=== PATIENT | male | born 1950 | race Caucasian/White ===

== ENCOUNTER 2016-10-03 10:11 | Emergency (ER) | payer MEDICARE, BC ==
[2016-10-03 10:39] VITALS: BP 140/84
--- NOTE | 2016-10-03 11:14 | UC ---
Ear Complaint HPI - HPI Summary HPI Summary: left ear clogged with wax--needs it flushed - History of Current Complaint Chief Complaint: UCEar Stated Complaint: EAR COMPLAINT Time Seen by Provider: 10/03/16 10:42 Hx Obtained From: Patient Onset/Duration: Gradual Onset, Lasting Weeks, Still Present Severity Initially: Mild Severity Currently: Moderate Pain Intensity: 5 Pain Scale Used: 0-10 Numeric Aggravating Factors: Nothing Alleviating Factors: Nothing Associated Signs/Symptoms: Positive: Hearing Loss - Allergies/Home Medications Allergies/Adverse Reactions: Allergies Allergy/AdvReac Type Severity Reaction Status Date / Time Penicillins [PCN] Allergy Rash Verified 10/03/16 10:39 Home Medications: Home Medications Aspirin 81 mg PO 10/03/16 [History] Chlorthalidone 6.25 mg PO 10/03/16 [History] Lisinopril [Lisinopril 2.5 MG-] 2.5 mg PO DAILY 10/03/16 [History Confirmed ] Nepafenac [Nevanac] 0.1 % OP 10/03/16 [History] PMH/Surg Hx/FS Hx/Imm Hx Previously Healthy: No Cardiovascular History: Hypertension - Surgical History Surgical History: None - Family History Known Family History: Positive: None - Social History Occupation: Employed Full-time Lives: With Family Alcohol Use: Weekly Substance Use Type: None Smoking Status (MU): Never Smoked Tobacco Review of Systems Constitutional: Negative Skin: Negative Eyes: Negative ENT: Negative, Ear Ache - left ear with hearing loss, feels like ear is clogged Respiratory: Negative Cardiovascular: Negative Gastrointestinal: Negative Genitourinary: Negative Motor: Negative Neurovascular: Negative Musculoskeletal: Negative Neurological: Negative Psychological: Negative All Other Systems Reviewed And Are Negative: Yes Physical Exam Triage Information Reviewed: Yes Appearance: Well-Appearing, No Pain Distress, Well-Nourished Vital Signs: Initial Vital Signs Temp 98.1 F 10/03/16 10:36 Pulse 69 10/03/16 10:36 Resp 18 10/03/16 10:36 BP 140/84 10/03/16 10:36 Pulse Ox 97 10/03/16 10:36 Vital Signs Reviewed: Yes Eye Exam: Normal Eyes: Positive: Conjunctiva Clear ENT Exam: Normal ENT: Positive: Normal ENT inspection, Hearing grossly normal, Pharynx normal, TMs normal. Negative: Nasal congestion, Nasal drainage, Trismus, Muffled/ hoarse voice Neck exam: Normal Neck: Positive: Supple, Nontender, No Lymphadenopathy Respiratory Exam: Normal Respiratory: Positive: Chest non-tender, No respiratory distress, No accessory muscle use Cardiovascular Exam: Normal Cardiovascular: Positive: RRR, Pulses Normal, Brisk Capillary Refill Abdomen Description: Positive: No Organomegaly, Soft Bowel Sounds: Positive: Absent Musculoskeletal Exam: Normal Musculoskeletal: Positive: Strength Intact, ROM Intact, No Edema Neurological Exam: Normal Neurological: Positive: Alert, Muscle Tone Normal Psychological Exam: Normal Skin Exam: Normal Re-Evaluation - Re-Evaluation First Eval Change: Improved - large amont of wax removed from left ear patient tolerated well-home in good condition in no c/o Ear Complaint Course/Dx - Course Course Of Treatment: avoid soaps and qtips in ear return or following with pcp if needed - Differential Dx/Diagnosis Differential Diagnosis/HQI/PQRI: Cerumen Impaction, Foreign Body, Trauma, Trigeminal Nueralgia, URI Provider Diagnoses: Resolved serumen impaction leaft ear Discharge - Discharge Plan Condition: Stable Disposition: HOME Patient Education Materials: Cerumen Impaction (ED), Hypertension (ED) Referrals: Carmen Murdock MD [Primary Care Provider] - If Needed
== END 2016-10-03 11:36 | disposition home or self-care (01) ==
LOC: UCEAST 10:11
DX: H61.22 Impacted cerumen, left ear (principal); Z88.0 Allergy status to penicillin; Z79.82 Long term (current) use of aspirin; I10 Essential (primary) hypertension
CPT/HCPCS: 99212; G0463

== ENCOUNTER 2016-11-28 17:28 | Emergency (ER) | payer MEDICARE, BC ==
[2016-11-28 17:34] VITALS: BP 157/83
[2016-11-28] MEDS ORDERED: DOXYcycline CAP(*) 100 MG PO ONE (18:01)
--- NOTE | 2016-11-28 18:15 | UC ---
Cande Jimenez Emily, scribed for Lacie Campbell MD on 11/28/16 at 1803 . Skin Complaint HPI - HPI Summary HPI Summary: This patient is a 66 year old M presenting to urgent care with a chief complaint of tick bite to L flank. Pt removed the tick with tweezers at 1700. Pt states ticked attached yesterday or today. Pt tdap UTD/. Symptoms aggravated by nothing. Symptoms alleviated by nothing. Patient denies pain to site, fever, and chills. Pt denies previous lyme disease. Pt states concerned regarding lyme and requesting prophylaxis. Pt brought tick with him. Patient's medications reviewed this visit. - History of Current Complaint Chief Complaint: UCSkin Time Seen by Provider: 11/28/16 17:47 Stated Complaint: TICK BITE Hx Obtained From: Patient Onset/Duration: Sudden Onset, Lasting Hours Pain Intensity: 0 Location: Discrete - left flank Aggravating Factor(s): Nothing Alleviating Factor(s): Nothing Associated Signs & Symptoms: Negative: Fever, Chills - Allergy/Home Medications Allergies/Adverse Reactions: Allergies Allergy/AdvReac Type Severity Reaction Status Date / Time Penicillins [PCN] Allergy Rash Verified 11/28/16 17:34 Review of Systems Constitutional: Other - Negative fever and chills Skin: Other - Positive tick bite. Negative pain at site of tick bite Is Patient Immunocompromised?: No All Other Systems Reviewed And Are Negative: Yes PMH/Surg Hx/FS Hx/Imm Hx - Additional Past Medical History Additional PMH: Negative hx of lyme disease Previously Healthy: No Cardiovascular History: Hypertension - Surgical History Surgical History: None - Family History Known Family History: Positive: None - Social History Occupation: Retired Lives: With Family Alcohol Use: Daily Alcohol Amount: 1 BEER/DAY Substance Use Type: None Smoking Status (MU): Never Smoked Tobacco Physical Exam Triage Information Reviewed: Yes Vital Signs: Initial Vital Signs Temp 97.2 F 11/28/16 17:31 Pulse 76 11/28/16 17:31 Resp 16 11/28/16 17:31 BP 157/83 11/28/16 17:31 Pulse Ox 98 11/28/16 17:31 Eyes: Positive: Conjunctiva Clear Respiratory: Positive: No respiratory distress, No accessory muscle use Abdomen Description: Positive: Other: - left flank - pt with quarter sized area of erythema. site of tick removal Neurological: Positive: Alert Skin: Positive: Other - pt with quarter size erythema left flank no retained parts noted non-tender. No fluctuance Course/Dx - Course Course Of Treatment: pt s/p tick bite - pt removed tick. intact - moving on my exam. d/w pt CDC recommendations regarding prophylaxis. PT anxious and requesting. will give doxy x 1 dose here. tdap utd. s/s infection reviewed. pt in agreement with plan - Diagnoses Provider Diagnoses: tick bite Discharge - Discharge Plan Condition: Stable Disposition: HOME Patient Education Materials: Tick Bite (ED) Referrals: Carmen Murdock MD [Primary Care Provider] - Additional Instructions: - you have been given the one time prophylatic treatment for lyme disease - keep the area of tick bite clean and dry - monitor for signs of infection - reddness, red streaking, increased pain, fever - call your doctor or return with questions or concerns The documentation as recorded by the Cande judge Emily accurately reflects the service I personally performed and the decisions made by me, Lacie Campbell MD.
== END 2016-11-28 18:14 | disposition home or self-care (01) ==
LOC: UCEAST 17:28
DX: S30.861A Insect bite (nonvenomous) of abdominal wall, initial encounter (principal); W57.XXXA Bitten or stung by nonvenomous insect and other nonvenomous arthropods, initial encounter; I10 Essential (primary) hypertension
CPT/HCPCS: 99212; A9270-GY; G0463

== ENCOUNTER 2018-05-19 09:32 | Emergency (ER) | payer MEDICARE, BC ==
[2018-05-19 09:50] VITALS: BP 136/81
[2018-05-19] MEDS ORDERED: Ibuprofen TAB* 600 MG PO ONE (10:00)
--- NOTE | 2018-05-19 10:02 | UC ---
Cardiac HPI - HPI Summary HPI Summary: 68-year-old male with a chief complaint of left anterior chest pain. He tripped and fell approximately an hour ago and he landed on a metal object onto his left anterior chest and he felt a crunching in his left anterior chest. Pain is about a 2 out of 10 at rest goes up to about a 6 out of 10 with a deep inspiration. Does not feel short of breath at rest. Denies any head or neck injury or abdominal injury or any other injury. Patient takes baby aspirin. - History of Current Complaint Chief Complaint: UCTrauma Stated Complaint: FALL Time Seen by Provider: 05/19/18 09:37 Pain Intensity: 2 - Allergy/Home Medications Allergies/Adverse Reactions: Allergies Allergy/AdvReac Type Severity Reaction Status Date / Time Penicillins Allergy Rash Verified 05/19/18 09:40 Home Medications: Home Medications Ezetimibe TAB* [Zetia TAB*] 10 mg PO DAILY 05/19/18 [History Confirmed 05/19/18] Ibuprofen TAB* [Advil TAB*] 400 mg PO Q8H PRN 05/19/18 [History Confirmed ] PMH/Surg Hx/FS Hx/Imm Hx Previously Healthy: Yes Cardiovascular History: Hypertension - Surgical History Surgical History: Yes Surgery Procedure, Year, and Place: inguinal hernia repair as a child. tonsils out - Family History Known Family History: Positive: None - Social History Alcohol Use: Occasionally Alcohol Amount: 1 BEER/DAY Substance Use Type: None Smoking Status (MU): Never Smoked Tobacco Review of Systems All Other Systems Reviewed And Are Negative: Yes Constitutional: Positive: Negative Skin: Positive: Negative Eyes: Positive: Negative ENT: Positive: Negative Respiratory: Positive: Negative Cardiovascular: Positive: Chest Pain Gastrointestinal: Positive: Negative Motor: Positive: Negative Neurovascular: Positive: Negative Musculoskeletal: Positive: Negative Neurological: Positive: Negative Psychological: Positive: Negative Is Patient Immunocompromised?: No Physical Exam Triage Information Reviewed: Yes Appearance: Well-Appearing, Well-Nourished, Pain Distress - MILD WITH DEEP BREATH Vital Signs: Initial Vital Signs Temp 97.8 F 05/19/18 09:43 Pulse 67 05/19/18 09:43 Resp 18 05/19/18 09:43 BP 136/81 05/19/18 09:43 Pulse Ox 97 05/19/18 09:43 Vital Signs Reviewed: Yes Eye Exam: Normal Eyes: Positive: Conjunctiva Clear Neck exam: Normal Neck: Positive: Supple, Nontender Respiratory: Positive: Lungs clear, Normal breath sounds, No respiratory distress Cardiovascular: Positive: RRR Abdomen Description: Positive: Nontender, Soft. Negative: Distended, Guarding Bowel Sounds: Positive: Present Musculoskeletal Exam: Normal Musculoskeletal: Positive: Strength Intact, ROM Intact Neurological: Positive: Alert, Muscle Tone Normal Psychological Exam: Normal Psychological: Positive: Normal Response To Family, Age Appropriate Behavior Skin Exam: Normal - Assessment/Plan Course Of Treatment: I discussed the x-ray report with the patient. The radiologist read the x-rays as no fracture or pneumothorax no acute disease process. Patient's going home and incentive spirometer he's any use ibuprofen on a regular basis and then Tylenol with Codeine as needed and follow-up his primary care doctor. Reevaluate sooner if worse or any other questions or concerns. - Clinical Impression Provider Diagnosis: Contusion of rib on left side Discharge - Sign-Out/Discharge Documenting (check all that apply): Patient Departure All imaging exams completed and their final reports reviewed: Yes - Discharge Plan Condition: Stable Disposition: HOME Prescriptions: Acetaminop/Codeine 30 MG TAB* [Tylenol/Codeine 30 MG TAB*] 1 tab PO Q6H PRN #30 tab MDD 4 PRN Reason: Pain Patient Education Materials: Rib Contusion (ED) Referrals: Carmen Murdock MD [Primary Care Provider] - Additional Instructions: FOLLOW UP WITH YOUR DOCTOR IF NOT COMPLETELY IMPROVED. GET REEVALUATED SOONER FOR ANY WORSENING OF YOUR CONDITION; PAIN, SHORTNESS OF BREATH, YOU FEEL ILL OR ANY QUESTIONS OR CONCERNS. - Billing Disposition and Condition Condition: STABLE Disposition: Home
== END 2018-05-19 11:14 | disposition home or self-care (01) ==
LOC: UCEAST 09:32
DX: S20.212A Contusion of left front wall of thorax, initial encounter (principal); I10 Essential (primary) hypertension; Z88.0 Allergy status to penicillin; Z79.82 Long term (current) use of aspirin; Z79.899 Other long term (current) drug therapy; W20.8XXA Other cause of strike by thrown, projected or falling object, initial encounter; Y92.9 Unspecified place or not applicable
CPT/HCPCS: 99212; A9270-GY; G0463

== ENCOUNTER 2018-08-01 20:57 | Emergency (ER) | payer MEDICARE, BC ==
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
[2018-08-01 21:59] VITALS: BP 110/67
== END 2018-08-01 21:50 | disposition home or self-care (01) ==
LOC: UCEAST 20:57
DX: S00.411A Abrasion of right ear, initial encounter (principal); X58.XXXA Exposure to other specified factors, initial encounter; Y92.9 Unspecified place or not applicable; I10 Essential (primary) hypertension; Z88.0 Allergy status to penicillin
CPT/HCPCS: 99211; G0463

== ENCOUNTER 2019-04-06 09:37 | Emergency (ER) | payer MEDICARE, BC ==
--- OUTSIDE RECORDS SUMMARY | 2019-04-06 09:43 | XMS REPORT | Continuity of Care Document ---
:1950 External Reference #:[id number] Author Name Analia Dawn M.D., FACP (transmitted by agent of provider Aylin Harris) Address [address], [place] [address] Care Team Providers Name Role Phone Gia Atkins MD - Internal Care Team Information [employer] Medicine Carmen Murdock MD - Internal Care Team Information [employer] Praveen Lynn MD - Urology Care Team Information [employer] [phone] Josh Meyers MD - Urology Care Team Information [employer] [phone] Problems Active Problems Provider Date Pure hypercholesterolemia Carmen Murdock M.D. Onset: 04/30/2010 Jsoe Pruett M.D. Onset: 02/05/2013 Essential hypertension Carmen Murdock M.D. Onset: 01/23/2015 Uveitis Carmen Murdock M.D. Onset: 12/08/2018 Sarcoidosis Carmen Murdock M.D. Onset: 12/08/2018 Note: pulmonary and eye Social History Type Date Description Comments Sex Unknown Tobacco Use Start: Unknown Never Smoked Cigarettes ETOH Use Drinks 1 Alcoholic Beverage Per Day Tobacco Use Start: Unknown Patient has never smoked Tobacco Use Start: Unknown not exposed to second hand smoke. Smoking Status Reviewed: 03/07/19 not exposed to second hand smoke. Allergies, Adverse Reactions, Alerts Active Allergies Reaction Severity Comments Date Penicillins ? 09/13/2009 Medications Active Medications SIG Qnty Indications Ordering Provider Date Azithromycin 2 by mouth day 6tabs R05 Analia Dawn, 03/07/2019 250mg 1 1 by mouth M.DGrupo, FACP Tablets daily until gone Benzonatate 1-2 by mouth 30caps R05 Analia Dawn, 03/07/2019 100mg every 8 hours M.D., FACP Capsules as needed Flovent HFA 1-2 puffs 10.600gm R05 Analia Dawn, 03/07/2019 44mcg/Act twice daily M.D., FACP Aerosol for 2-[address] 1 drop 10units Unknown 10/24/2018 P-F into the left 1% Suspension eye Four times daily Ezetimibe Take 1 Tablet 90tabs E78.5 [facility], 03/16/2017 10mg Tablets By Mouth Every M.D. Day Aspirin 1 by mouth [facility], 09/15/[address] once daily M.D. Multi Complete as needed Unknown Capsules Chlorthalidone take 1/2 45tabs Carmen Cotton, 25mg tablet by M.D. Tablets mouth once daily Ibuprofen 200 Take 200 mg by Unknown 200mg mouth every 6 Tablets (six) hours as needed for Pain Immunizations CPT Code Status Date Vaccine Lot # [id number] Given 12/24/2018 Influenza Virus Vaccine, Quadrivalent ([id number]), [id number] Derived From Cell 96796 Given 03/01/2018 Influenza Virus Vaccine, Quadrivalent, Split, [id number] Preservative Free [id number] Given 08/19/2015 Pneumonia Vaccine [id number] 87035 Given 07/27/2015 Tetanus And Diptheria (Td) For Adult Use [id number] Preservative Free 20578 Given 01/23/2015 Influenza Virus Vaccine, Quadrivalent, Split, [id number] Preservative Free 34131 Given 07/24/2014 Pneumococcal Conjugate Vaccine 13 Valent For [id number] Intramuscular Use 99997 Given 12/09/2013 Flu Vaccine Split Virus Preservative Free For [id number] Indiv 3Yr Older 34778 Given 12/03/2012 Flu Vaccine Split Virus Preservative Free For [id number] Indiv 3Yr Older [id number] Given 12/01/2011 Fluvirin Im 3Yrs And Older [id number] 28148 Given 11/22/2010 Zoster (Zostavax) [id number] 30009 Given 11/22/2010 Influenza Virus 3Yrs & Over [id number] 21628 Given 08/07/2006 Tdap - Tetanus/Diptheria/Acellular Pertussis Vital Signs Date Vital Result Comment 03/07/2019 11:32am Height 68.5 inches 5'8.50" Weight 240.00 lb Heart Rate 86 /min BP Systolic Sitting 134 mmHg Lue reg cuff BP Diastolic Sitting 78 mmHg Lue reg cuff Body Temperature 99.3 F O2 % BldC Oximetry 96 % BMI (Body Mass Index) 36.0 kg/m2 12/24/2018 11:37am Height 68.5 inches 5'8.50" Weight 236.00 lb Heart Rate 58 /min BP Systolic 142 mmHg BP Diastolic 86 mmHg BP Systolic Sitting 138 mmHg recheck BP Diastolic Sitting 86 mmHg recheck O2 % BldC Oximetry 97 % BMI (Body Mass Index) 35.4 kg/m2 Results Test Acquired Date Facility Test Result H/L Range Note Lipid Profile 12/24/2018 [facility] Triglycerides 204 mg/dL 1 (Trig/Chol/HDL) [address] [place] [address] [phone] Cholesterol 211 mg/dL 2 HDL Cholesterol 35.1 mg/dL 3 LDL Cholesterol 135 mg/dL 4 Comp Metabolic 12/24/2018 [facility] Sodium 140 mmol/L Normal 135-[address] [place] [address] [phone] Potassium 4.5 mmol/L Normal 3.5-5.0 Chloride 105 mmol/L Normal 101-111 Co2 Carbon Dioxide 28 mmol/L Normal 22-32 Anion Gap 7 mmol/L Normal 2-11 Glucose 100 mg/dL Normal 70-100 Blood Urea Nitrogen 26 mg/dL High 6-24 Creatinine 1.21 mg/dL High 0.67-1.17 BUN/Creatinine Ratio 21.5 High 8-20 Calcium 10.2 mg/dL Normal 8.6-10.3 Total Protein 7.0 g/dL Normal 6.4-8.9 Albumin 4.4 g/dL Normal 3.2-5.2 Globulin 2.6 g/dL Normal 2-4 Albumin/Globulin Ratio 1.7 Normal 1-3 Total Bilirubin 0.60 mg/dL Normal 0.2-1.0 Alkaline Phosphatase 72 U/L Normal 34-104 Alt 26 U/L Normal 7-52 Ast 16 U/L Normal 13-39 Egfr Non- 59.5 >60 Egfr 71.9 >60 5 1 Desirable: <150 Borderline High: 150-199 High: 200-499 Very High: >500 2 Desirable: <200 Borderline High: 200-239 High: >239 3 Low: <40 Desirable: 40-60 High: >60 4 Desirable: <100 Near Optimal: 100-129 Borderline High: 130-159 High: 160-189 Very High: >189 5 Because ethnic data is not always readily available, this report includes an eGFR for both -Americans and non- Americans. The National Kidney Disease Education Program (NKDEP) does not endorse the use of the MDRD equation for patients that are not between the ages of 18 and 70, are , have extremes of body size, muscle mass, or nutritional status, or are non- or non-. According to the National Kidney Foundation, irrespective of diagnosis, the stage of the disease is based on the level of kidney function: Stage Description GFR(mL/min/1.73 m(2)) 1 Kidney damage with normal or decreased GFR 90 2 Kidney damage with mild decrease in GFR 60-89 3 Moderate decrease in GFR 30-59 4 Severe decrease in GFR 15-29 5 Kidney failure <15 (or dialysis) Procedures Date Code Description Status 11/23/2018 [id number] Diabetic Retinal Eye Exam Completed 02/24/2011 25450391 Colonoscopy Completed 02/23/2006 [id number] Colonoscopy Completed Medical Devices Description No Information Available Encounters Type Date Location Provider Dx Diagnosis Office Visit 12/24/2018 [facility] Internal Carmen Murdock, D86.0 S[facility]oidosis [facility] lung [facility] Essential (primary) hypertension Z23 Encounter for immunization Assessments Date Code Description Provider 03/07/2019 R05 Cough Analia Dawn M.D., [facility] 12/24/2018 D86.0 Sarcoidosis of lung Carmen Murdock M.D. 12/24/2018 I10 Essential (primary) hypertension Carmen Murdock M.D. 12/24/2018 Z23 Encounter for immunization Carmen Murdock M.D. Plan of Treatment Future Appointment(s):09/10/2019 9:20 am - Carm[facility] Mur[facility] M.D. at [facility] - Analia Dawn M.D., FACPR05 CoughNew Medication:Azithromycin 250 mg - 2 by mouth day 1 1 by mouth daily until goneBenzonatate 100 mg - 1-2 by mouth every 8 hours as neededFlovent HFA 44 mcg/ Act - 1-2 puffs twice daily for 2-3 weeksComments:COUGH:This is most likely due to a bronchitis. Your lung exam demonstrated some coarse breath sounds today.I have sent an rx for an antibiotic called azithromycin to your pharmacy.I also recommend aggressive symptom management with an inhaled steroid spray and cough suppression.I have sent an rx for Flovent to be used twice daily for 10 days. I have sent an rx for benzonatate to your pharmacy. Youmay continue to use Mucinex and nasal saline as needed. Keep well hydrated. Having a humidifier running in your bedroom might be helpful.Call back if you are not feeling substantively better or if your symptoms are worsening.Follow up:as needed Functional Status Description No Information Available Mental Status Description No Information Available Referrals Description No Information Available
[2019-04-06 09:48] VITALS: BP 145/87
--- NOTE | 2019-04-06 09:49 | UC ---
Complaint Male HPI - HPI Summary HPI Summary: 69 yo male presents with UTI symptoms. He tells me that for the past 2-3 days he has been having urinary frequency and bladder pressure. Notices some "sharpness" when he urinates. He has had UTIs in the past and states this feels similar. He has seen Urology. He took an OTC UTI test this morning that was positive for infection. He denies fever, chills, abdominal pain, flank pain, hematuria, penile drainage, rash, testicular pain, weak or stopping/starting stream. - History of Current Complaint Chief Complaint: UCGU Stated Complaint: PERSONAL Time Seen by Provider: 04/06/19 09:49 Hx Obtained From: Patient Onset/Duration: Sudden Onset Severity Initially: Mild Severity Currently: Mild Pain Intensity: 1 - Allergies/Home Medications Allergies/Adverse Reactions: Allergies Allergy/AdvReac Type Severity Reaction Status Date / Time Penicillins Allergy Rash Verified 04/06/19 09:42 Home Medications: Home Medications Aspirin 81 mg PO DAILY 10/03/16 [History Confirmed 04/06/19] Chlorthalidone 12 mg PO DAILY 10/03/16 [History Confirmed 04/06/19] Acetaminop/Codeine 30 MG TAB* [Tylenol/Codeine 30 MG TAB*] 1 tab PO Q6H PRN #30 tab MDD 4 05/19/18 [Rx Confirmed 04/06/19] Ezetimibe TAB* [Zetia TAB*] 10 mg PO DAILY 05/19/18 [History Confirmed 04/06/19] Ibuprofen TAB* [Advil TAB*] 400 mg PO Q8H PRN 05/19/18 [History Confirmed ] Cephalexin CAP* [Keflex CAP*] 500 mg PO BID #14 cap 04/06/19 [Rx] PMH/Surg Hx/FS Hx/Imm Hx Endocrine History: Dyslipidemia Cardiovascular History: Hypertension - Surgical History Surgical History: Yes Surgery Procedure, Year, and Place: inguinal hernia repair as a child. tonsils out - Family History Known Family History: Positive: None - Social History Lives: With Family Alcohol Use: Occasionally Alcohol Amount: 1 BEER/DAY Substance Use Type: None Smoking Status (MU): Never Smoked Tobacco - Immunization History Most Recent Tetanus Shot: UNSURE Review of Systems All Other Systems Reviewed And Are Negative: No Constitutional: Positive: Negative Skin: Positive: Negative Respiratory: Positive: Negative Cardiovascular: Positive: Negative Gastrointestinal: Positive: Negative Genitourinary: Positive: Dysuria Neurological/Mental Status: Positive: Negative Psychological: Positive: Negative Physical Exam - Summary Physical Exam Summary: GENERAL: NAD. WDWN. No pain distress. SKIN: No rashes, sores, lesions, or open wounds. NECK: Supple. Nontender. No lymphadenopathy. CHEST: CTAB. No r/r/w. No accessory muscle use. Breathing comfortably and in no distress. CV: RRR. Pulses intact. Cap refill <2seconds ABDOMEN: Soft. NTTP. No CVA tenderness. Bowel sounds present NEURO: Alert. PSYCH: Age appropriate behavior. Triage Information Reviewed: Yes Vital Signs: Initial Vital Signs Temp 98.3 F 04/06/19 09:44 Pulse 64 04/06/19 09:44 Resp 16 04/06/19 09:44 BP 145/87 04/06/19 09:44 Pulse Ox 97 04/06/19 09:44 Laboratory Tests 04/06/19 10:00 POC Urine Color Yellow POC Urine Clarity Slightly cloudy POC Urine pH 7.5 POC Ur Specif [place] 1.020 POC Urine Protein Negative POC Ur Glucose (UA) Negative POC Urine Ketones Negative POC Urine Blood Negative POC Urine Nitrite Negative POC Urine Bilirubin Negative POC Urine Urobilinogen 0.2 POC U Leukocyte Esteras Trace A Vital Signs Reviewed: Yes Complaint Male Course/Dx - Course Course Of Treatment: UA as above. Will treat with keflex and send his urine for culture - Differential Dx/Diagnosis Provider Diagnosis: UTI (urinary tract infection) Discharge ED - Sign-Out/Discharge Documenting (check all that apply): Patient Departure All imaging exams completed and their final reports reviewed: No Studies - Discharge Plan Condition: Stable Disposition: HOME Prescriptions: Cephalexin CAP* [Keflex CAP*] 500 mg PO BID #14 cap Patient Education Materials: Urinary Tract Infection in Men (ED) Referrals: Carmen Murdock MD [Primary Care Provider] - Additional Instructions: If you develop a fever, shortness of breath, chest pain, new or worsening symptoms - please call your PCP or go to the ED immediately. Your blood pressure was high at todays visit. Please see your primary provider within 4 weeks for recheck and re-evaluation. - Billing Disposition and Condition Condition: STABLE Disposition: Home - Attestation Statements Provider Attestation: This patient was not seen by me. I was available for consult. Chart reviewed. VERÓNICA
--- NOTE | 2019-04-08 15:27 | UC ---
- Progress Note Progress Note: REsults + for strep mitis, oralis- should have adequate coverage with cephalosporin, await C&S. -Chandrika Sharpe PAC Course/Dx - Diagnoses Provider Diagnoses: UTI (urinary tract infection) Discharge ED - Sign-Out/Discharge Documenting (check all that apply): Patient Departure All imaging exams completed and their final reports reviewed: No Studies - Discharge Plan Condition: Stable Disposition: HOME Prescriptions: Cephalexin CAP* [Keflex CAP*] 500 mg PO BID #14 cap Patient Education Materials: Urinary Tract Infection in Men (ED) Referrals: Carmen Murdock MD [Primary Care Provider] - Additional Instructions: If you develop a fever, shortness of breath, chest pain, new or worsening symptoms - please call your PCP or go to the ED immediately. Your blood pressure was high at todays visit. Please see your primary provider within 4 weeks for recheck and re-evaluation. - Billing Disposition and Condition Condition: STABLE Disposition: Home
== END 2019-04-06 10:16 | disposition home or self-care (01) ==
LOC: UCEAST 09:37
DX: N39.0 Urinary tract infection, site not specified (principal); I10 Essential (primary) hypertension; Z79.899 Other long term (current) drug therapy; Z79.82 Long term (current) use of aspirin; Z88.0 Allergy status to penicillin
CPT/HCPCS: 81003; 87077; 87086; 87186; 99212; G0463